=== PATIENT | male | born 1985 | race Two or more races ===

== ENCOUNTER 2016-08-07 10:15 | Emergency (ER) | payer OTHER ==
[~2016-08-07] VITALS: Ht 180.3 cm; Wt 78.6 kg
[~2016-08-07 10:15] MED LIST: AMOXICILLIN500 MG PO; AUGMENTIN875 MG PO; DEPAKOTE500 MG PO; DILANTIN100 MG PO; HYDROCODON-ACE1 EAC7 PO; KEPPRA XR750 MG PO; KEPPRA500 MG PO; KEPPRA750 MG PO; MOTRIN800 MG PO; NAPROSYN500 MG PO; NAPROXEN500 M2 PO; NAPROXEN500 MG PO; TEGRETOL200 MG PO; depakote; dilantin
[2016-08-07] MEDS ORDERED: EPITOL200 MG PO (11:19)
[2016-08-07] MEDS ORDERED: KEPPRA750 MG PO (11:19)
[2016-08-07 11:50] VITALS: BP 142/78
== END 2016-08-07 11:51 | disposition home or self-care (01) ==
LOC: EME 10:15 → EXP 10:15
DX: G40.909 Epilepsy, unspecified, not intractable, without status epilepticus (principal); Z91.14 Patient's other noncompliance with medication regimen; S00.81XA Abrasion of other part of head, initial encounter; J45.909 Unspecified asthma, uncomplicated; F17.200 Nicotine dependence, unspecified, uncomplicated
CPT/HCPCS: 99281; 99283

== ENCOUNTER 2016-11-02 07:32 | Emergency (ER) | payer OTHER ==
[~2016-11-02] VITALS: Ht 180.3 cm; Wt 67.7 kg
[~2016-11-02 07:32] MED LIST changes: +EPITOL200 MG PO
[2016-11-02 08:24] LABS: HEMATOCRIT 40.4 % (38.0-50.0); MCH 30.1 PG (29.0-34.0); MCHC 35.1 G/DL (30.0-36.0); MCV 85.6 FL (86-99); RBC DIS.WIDTH-SD 44.1 % (39-53); RED BLOOD COUNT 4.72 M/uL (4.00-5.50); WHITE BLOOD COUNT 6.9 K/uL (4.1-10.2)
[2016-11-02 08:33] LABS: CHLORIDE 109 mEq/L (99-109); POTASSIUM 3.9 mEq/L (3.7-5.4); SODIUM 141 mEq/L (136-147)
[2016-11-02 08:34] LABS: GLUCOSE 106 mg/dL (70-99)
[2016-11-02 08:36] LABS: ANION GAP 14 MEQ/L (2-14)
[2016-11-02 08:38] LABS: GFR ESTIMATE (CALCULATED) > 59 mL/min/
[2016-11-02 08:39] LABS: UREA NITROGEN (BUN) 8 mg/dL (9-23)
[2016-11-02 09:30] LABS: MEAN PLAT.VOLUME 11.3 uM^3 (9.0-12.4); PLATELET COUNT 177 K/uL (156-360)
[2016-11-02] MEDS ORDERED: DILANTIN100 MG PO (11:20)
[2016-11-02] MEDS ORDERED: VALPROIC ACID250 MG PO (11:20)
[2016-11-02 11:28] VITALS: BP 115/74
== END 2016-11-02 11:38 | disposition home or self-care (01) ==
LOC: EME 07:32
PROVIDERS: Emergency Medicine
DX: G40.909 Epilepsy, unspecified, not intractable, without status epilepticus (principal); T42.6X6A Underdosing of other antiepileptic and sedative-hypnotic drugs, initial encounter; T42.0X6A Underdosing of hydantoin derivatives, initial encounter; Z91.128 Patient's intentional underdosing of medication regimen for other reason; F17.200 Nicotine dependence, unspecified, uncomplicated
CPT/HCPCS: 80048; 80164; 80185; 85027; 99281; 99285

== ENCOUNTER 2016-11-15 08:10 | Emergency (ER) | payer OTHER ==
[~2016-11-15] VITALS: Ht 180.3 cm; Wt 73.4 kg
[~2016-11-15 08:10] MED LIST changes: +VALPROIC ACID250 MG PO
[2016-11-15 08:58] LABS: EOSINOPHIL (%) 1.4 % (0-5); EOSINOPHIL COUNT 0.1 K/uL (0-0.3); HEMATOCRIT 43.5 % (38.0-50.0); IMMATURE GRANULOCYTE (%) 0.4 % (0.0-0.7); INSTRUMENT ABS NEUTROPHIL CT 3.3 K/uL; LYMPHOCYTE COUNT 1.3 K/uL (1.0-2.8); MCH 29.6 PG (29.0-34.0); MCHC 34.7 G/DL (30.0-36.0); MCV 85.3 FL (86-99); MEAN PLAT.VOLUME 11.5 uM^3 (9.0-12.4); MONOCYTE COUNT 0.3 K/uL (0-0.8); NEUTROPHIL (%) 66.6 % (45-76); NEUTROPHIL COUNT 3.3 K/uL (1.8-6.4); PLATELET COUNT 176 K/uL (156-360); RBC DIS.WIDTH-CV 13.6 % (11.8-14.6); RBC DIS.WIDTH-SD 42.6 % (39-53)
[2016-11-15 09:08] LABS: CHLORIDE 107 mEq/L (99-109); POTASSIUM 3.9 mEq/L (3.7-5.4); SODIUM 142 mEq/L (136-147)
[2016-11-15 09:10] LABS: GLUCOSE 99 mg/dL (70-99)
[2016-11-15 09:11] LABS: ANION GAP 13 MEQ/L (2-14)
[2016-11-15 09:13] LABS: GFR ESTIMATE (CALCULATED) > 59 mL/min/
[2016-11-15 09:14] LABS: UREA NITROGEN (BUN) 10 mg/dL (9-23)
[2016-11-15 11:16] LABS: SAMPLE HEMOLYSIS CHECK 0; SAMPLE ICTERIC CHECK 0; SAMPLE LIPEMIA CHECK 0
[2016-11-15 12:30] VITALS: BP 104/71
== END 2016-11-15 12:49 | disposition home or self-care (01) ==
LOC: EME → EDBD 08:10 → EME 12:49
PROVIDERS: Emergency Medicine
DX: G40.909 Epilepsy, unspecified, not intractable, without status epilepticus (principal); Z91.19 Patient's noncompliance with other medical treatment and regimen; F17.200 Nicotine dependence, unspecified, uncomplicated; J45.909 Unspecified asthma, uncomplicated
CPT/HCPCS: 70450; 80048; 80164; 80185; 85025; 99281; 99284; J1165; J2060; J7050

== ENCOUNTER 2016-11-28 08:31 | Emergency (ER) | payer OTHER ==
[~2016-11-28] VITALS: Ht 175.3 cm; Wt 67.9 kg
[2016-11-28 09:26] LABS: HEMATOCRIT 41.7 % (38.0-50.0); MCH 29.6 PG (29.0-34.0); MCHC 34.5 G/DL (30.0-36.0); MCV 85.8 FL (86-99); RBC DIS.WIDTH-CV 13.7 % (11.8-14.6); RBC DIS.WIDTH-SD 42.7 % (39-53); RED BLOOD COUNT 4.86 M/uL (4.00-5.50); WHITE BLOOD COUNT 4.7 K/uL (4.1-10.2)
[2016-11-28 09:38] LABS: CHLORIDE 107 mEq/L (99-109); POTASSIUM 4.1 mEq/L (3.7-5.4); SODIUM 138 mEq/L (136-147)
[2016-11-28 09:41] LABS: GLUCOSE 89 mg/dL (70-99)
[2016-11-28 09:42] LABS: ANION GAP 9 MEQ/L (2-14); TOTAL BILIRUBIN 0.4 mg/dL (0.0-1.0)
[2016-11-28 09:43] LABS: SERUM ETHYL ALCOHOL < 10 mg/dL
[2016-11-28 09:44] LABS: ALKALINE PHOSPHATASE 77 IU/L (3-129); GFR ESTIMATE (CALCULATED) > 59 mL/min/
[2016-11-28 09:45] LABS: UREA NITROGEN (BUN) 12 mg/dL (9-23)
[2016-11-28 10:56] LABS: MEAN PLAT.VOLUME 11.6 uM^3 (9.0-12.4); PLAT.SUFFICIENCY ADEQUATE; PLATELET COUNT 170 K/uL (156-360)
[2016-11-28] MEDS ORDERED: PHENYTOIN SODI100 M1 PO (12:45)
[2016-11-28] MEDS ORDERED: DEPAKOTE500 MG PO (12:45)
[2016-11-28 12:59] VITALS: BP 119/65
== END 2016-11-28 13:00 | disposition home or self-care (01) ==
LOC: EME 08:31
PROVIDERS: Nurse Practitioner Family
DX: G40.909 Epilepsy, unspecified, not intractable, without status epilepticus (principal); Z91.14 Patient's other noncompliance with medication regimen; M54.89 Other dorsalgia; F10.10 Alcohol abuse, uncomplicated; F17.200 Nicotine dependence, unspecified, uncomplicated; Z71.6 Tobacco abuse counseling
CPT/HCPCS: 80053; 80164; 80185; 85027; 93005; 99281; 99285; G0480; J1165; J7050

== ENCOUNTER 2017-01-02 10:10 | Emergency (ER) | payer OTHER ==
[~2017-01-02] VITALS: Ht 180.3 cm; Wt 72.7 kg
[~2017-01-02 10:10] MED LIST changes: +PHENYTOIN SODI100 M1 PO
[2017-01-02 10:35] LABS: HEMATOCRIT 41.7 % (38.0-50.0); MCH 30.3 PG (29.0-34.0); MCV 86.5 FL (86-99); MEAN PLAT.VOLUME 11.5 uM^3 (9.0-12.4); PLATELET COUNT 152 K/uL (156-360); RBC DIS.WIDTH-CV 13.4 % (11.8-14.6); RBC DIS.WIDTH-SD 42.6 % (39-53); RED BLOOD COUNT 4.82 M/uL (4.00-5.50); WHITE BLOOD COUNT 4.8 K/uL (4.1-10.2)
[2017-01-02 10:47] LABS: CHLORIDE 106 mEq/L (99-109); POTASSIUM 4.4 mEq/L (3.7-5.4); SODIUM 138 mEq/L (136-147)
[2017-01-02 10:49] LABS: GLUCOSE 89 mg/dL (70-99)
[2017-01-02 10:51] LABS: ANION GAP 10 MEQ/L (2-14)
[2017-01-02 10:53] LABS: GFR ESTIMATE (CALCULATED) > 59 mL/min/
[2017-01-02 10:54] LABS: UREA NITROGEN (BUN) 10 mg/dL (9-23)
[2017-01-02 13:19] VITALS: BP 109/67
== END 2017-01-02 13:55 | disposition home or self-care (01) ==
LOC: EME 10:10
PROVIDERS: Emergency Medicine
DX: G40.909 Epilepsy, unspecified, not intractable, without status epilepticus (principal); T42.0X6A Underdosing of hydantoin derivatives, initial encounter; Z91.128 Patient's intentional underdosing of medication regimen for other reason; F17.200 Nicotine dependence, unspecified, uncomplicated
CPT/HCPCS: 80048; 80164; 80185; 85027; 93005; 99281; 99284

== ENCOUNTER 2017-01-13 01:48 | Emergency (ER) | payer OTHER ==
[~2017-01-13] VITALS: Ht 180.3 cm; Wt 73.8 kg
[2017-01-13 02:25] LABS: HEMATOCRIT 40.1 % (38.0-50.0); MCH 30.1 PG (29.0-34.0); MCHC 34.9 G/DL (30.0-36.0); MCV 86.2 FL (86-99); MEAN PLAT.VOLUME 11.1 uM^3 (9.0-12.4); PLATELET COUNT 140 K/uL (156-360); RBC DIS.WIDTH-CV 13.4 % (11.8-14.6); RBC DIS.WIDTH-SD 42.6 % (39-53); RED BLOOD COUNT 4.65 M/uL (4.00-5.50); WHITE BLOOD COUNT 6.2 K/uL (4.1-10.2)
[2017-01-13 02:33] LABS: CHLORIDE 106 mEq/L (99-109); POTASSIUM 3.6 mEq/L (3.7-5.4); SODIUM 142 mEq/L (136-147)
[2017-01-13 02:35] LABS: GLUCOSE 107 mg/dL (70-99)
[2017-01-13 02:36] LABS: ANION GAP 10 MEQ/L (2-14)
[2017-01-13 02:37] LABS: TOTAL BILIRUBIN 0.2 mg/dL (0.0-1.0)
[2017-01-13 02:38] LABS: SERUM ETHYL ALCOHOL 242 mg/dL
[2017-01-13 02:39] LABS: ALKALINE PHOSPHATASE 80 IU/L (3-129); GFR ESTIMATE (CALCULATED) > 59 mL/min/
[2017-01-13 02:40] LABS: UREA NITROGEN (BUN) 10 mg/dL (9-23)
[2017-01-13 03:01] LABS: ADD MIUA? NO; BILIRUBIN NEGATIVE; BLOOD NEGATIVE; COLOR YELLOW ((YELLOW)); GLUCOSE (STRIP) NEGATIVE; KETONES NEGATIVE; LEUKOCYTES NEGATIVE; NITRITE NEGATIVE; PROTEIN (STRIP) NEGATIVE; SPECIFIC GRAVITY 1.013 (1.000-1.030); UROBILINOGEN 0.2 MG/DL (0.2-1.0)
[2017-01-13 03:11] LABS: AMPHETAMINE NEGATIVE (500 ng/mL); BENZODIAZEPINES NEGATIVE (150 ng/mL); COCAINE NEGATIVE (150 ng/mL); METHADONE NEGATIVE (200 ng/mL); METHAMPHETAMINE NEGATIVE (500 ng/mL); OPIATES (MORPHINE) NEGATIVE (100 ng/mL); PHENCYCLIDINE NEGATIVE (25 ng/mL); THC CANNABINOIDS NEGATIVE (50 ng/mL); TRICYCLIC ANTIDEPRESSANTS NEGATIVE (300 ng/mL)
[2017-01-13 03:12] LABS: ADD MEDTOX COMMENT Y; BARBITURATES PRESUMPTIVE POSITIVE (200 ng/mL); INTERNAL CONTROLS VALID? YES; OXYCODONE NEGATIVE (100 ng/mL); PROPOXYPHENE NEGATIVE (300 ng/mL)
[2017-01-13 04:05] LABS: BARBITUATES QUANT VALUE 0 NG/ML
[2017-01-13] MEDS ORDERED: DILANTIN100 MG PO (06:24)
[2017-01-13 08:01] VITALS: BP 91/67
== END 2017-01-13 08:02 | disposition home or self-care (01) ==
LOC: EME → EDBD 01:48 → EME 08:02
PROVIDERS: Emergency Medicine
DX: G40.909 Epilepsy, unspecified, not intractable, without status epilepticus (principal); F10.129 Alcohol abuse with intoxication, unspecified; Y90.8 Blood alcohol level of 240 mg/100 ml or more; Z91.14 Patient's other noncompliance with medication regimen; F17.200 Nicotine dependence, unspecified, uncomplicated
CPT/HCPCS: 80053; 81003; 84999; 85027; 99281; 99284; G0480; J2250

== ENCOUNTER 2017-04-04 10:13 | Emergency (ER) | payer OTHER ==
[~2017-04-04] VITALS: Ht 180.3 cm; Wt 76.4 kg
[2017-04-04 11:10] LABS: EOSINOPHIL (%) 1.1 % (0-5); EOSINOPHIL COUNT 0.1 K/uL (0-0.3); HEMATOCRIT 43.5 % (38.0-50.0); IMMATURE GRANULOCYTE (%) 0.4 % (0.0-0.7); INSTRUMENT ABS NEUTROPHIL CT 7.1 K/uL; LYMPHOCYTE COUNT 1.4 K/uL (1.0-2.8); MCH 30.3 PG (29.0-34.0); MCHC 35.2 G/DL (30.0-36.0); MCV 86.1 FL (86-99); MEAN PLAT.VOLUME 11.2 uM^3 (9.0-12.4); MONOCYTE (%) 4.5 % (3-12); MONOCYTE COUNT 0.4 K/uL (0-0.8); NEUTROPHIL (%) 78.1 % (45-76); NEUTROPHIL COUNT 7.1 K/uL (1.8-6.4); PLATELET COUNT 195 K/uL (156-360); RBC DIS.WIDTH-CV 13.5 % (11.8-14.6); RBC DIS.WIDTH-SD 42.6 % (39-53); RED BLOOD COUNT 5.05 M/uL (4.00-5.50); WHITE BLOOD COUNT 9.1 K/uL (4.1-10.2)
[2017-04-04 11:21] LABS: CHLORIDE 106 mEq/L (99-109); POTASSIUM 3.5 mEq/L (3.7-5.4); SODIUM 139 mEq/L (136-147)
[2017-04-04 11:23] LABS: GLUCOSE 98 mg/dL (70-99)
[2017-04-04 11:24] LABS: ANION GAP 10 MEQ/L (2-14)
[2017-04-04 11:27] LABS: GFR ESTIMATE (CALCULATED) > 59 mL/min/
[2017-04-04 11:28] LABS: UREA NITROGEN (BUN) 9 mg/dL (9-23)
[2017-04-04] MEDS ORDERED: DEPAKOTE500 MG PO (14:05)
[2017-04-04 14:27] VITALS: BP 151/74
== END 2017-04-04 14:40 | disposition home or self-care (01) ==
LOC: EME 10:13
PROVIDERS: Emergency Medicine
DX: G40.909 Epilepsy, unspecified, not intractable, without status epilepticus (principal); S01.81XA Laceration without foreign body of other part of head, initial encounter; Z23 Encounter for immunization; W10.9XXA Fall (on) (from) unspecified stairs and steps, initial encounter; T42.6X6A Underdosing of other antiepileptic and sedative-hypnotic drugs, initial encounter; Z91.128 Patient's intentional underdosing of medication regimen for other reason; F17.200 Nicotine dependence, unspecified, uncomplicated
CPT/HCPCS: 70450; 72125; 80048; 80185; 85025; 99281; 99284; J1165; J7050

== ENCOUNTER 2017-10-27 10:00 | Emergency (ER) | payer OTHER ==
[~2017-10-27] VITALS: Ht 180.3 cm; Wt 74.4 kg
[2017-10-27 11:05] LABS: HEMATOCRIT 39.3 % (38.0-50.0); HEMOGLOBIN 14.2 G/DL (12.5-16.6); MCH 30.8 PG (29.0-34.0); MCHC 36.1 G/DL (30.0-36.0); MCV 85.2 FL (86-99); RBC DIS.WIDTH-CV 13.5 % (11.8-14.6); RBC DIS.WIDTH-SD 42.5 % (39-53); RED BLOOD COUNT 4.61 M/uL (4.00-5.50); WHITE BLOOD COUNT 8.1 K/uL (4.1-10.2)
[2017-10-27 11:39] LABS: ALBUMIN 3.7 G/DL (3.2-4.8); ALKALINE PHOSPHATASE 89 IU/L (3-129); ALT (GPT) 18 IU/L (3-49); AST (GOT) 15 IU/L (2-34); CHLORIDE 108 MEQ/L (99-109); CREATINE KINASE 89 IU/L (1-294); GFR ESTIMATE (CALCULATED) > 59 mL/min/ (58.99-99999); GLUCOSE 85 mg/dL (70-99); MAGNESIUM 1.9 mg/dl (1.3-2.7); POTASSIUM 4.2 MEQ/L (3.7-5.4); SODIUM 138 MEQ/L (136-147); TOTAL BILIRUBIN 0.3 MG/DL (0.0-1.0); TOTAL CK 89 IU/L (1-294); TOTAL PROTEIN 6.1 G/DL (6.4-8.3); UREA NITROGEN (BUN) 7 mg/dL (9-23)
[2017-10-27 11:45] LABS: PLAT.SUFFICIENCY ADEQUATE; PLATELET COUNT 186 K/uL (156-360)
[2017-10-27 11:51] LABS: AMPHETAMINE NEGATIVE (500 ng/mL); BARBITURATES PRESUMPTIVE POSITIVE (200 ng/mL); BENZODIAZEPINES NEGATIVE (150 ng/mL); BUPRENORPHINE NEGATIVE (10 ng/mL); COCAINE NEGATIVE (150 ng/mL); METHADONE NEGATIVE (200 ng/mL); METHAMPHETAMINE NEGATIVE (500 ng/mL); OPIATES (MORPHINE) NEGATIVE (100 ng/mL); OXYCODONE NEGATIVE (100 ng/mL); PHENCYCLIDINE NEGATIVE (25 ng/mL); PROPOXYPHENE NEGATIVE (300 ng/mL); THC CANNABINOIDS NEGATIVE (50 ng/mL); TRICYCLIC ANTIDEPRESSANTS NEGATIVE (300 ng/mL)
[2017-10-27 12:56] LABS: CK-MB 1.2 ng/mL (0.0-4.9); CKMB RELATIVE INDEX 1.3 (0.0-3.9)
[2017-10-27 12:57] LABS: SERUM ETHYL ALCOHOL < 10 mg/dL
[2017-10-27] MEDS ORDERED: DILANTIN100 MG PO (14:34)
[2017-10-27 14:55] VITALS: BP 107/57
== END 2017-10-27 15:18 | disposition home or self-care (01) ==
LOC: EME 10:00
PROVIDERS: Nurse Practitioner Family
DX: R56.9 Unspecified convulsions (principal); F10.10 Alcohol abuse, uncomplicated; Z71.6 Tobacco abuse counseling; F17.210 Nicotine dependence, cigarettes, uncomplicated; R94.31 Abnormal electrocardiogram [ECG] [EKG]
CPT/HCPCS: 80053; 80185; 82550; 82553; 83735; 84999; 85027; 93005; 99281; 99284; G0480; J1165; J7030; J7050